=== PATIENT | male | born 1995 | race Two or more races ===

== ENCOUNTER 2020-07-24 19:59 | Emergency (ER) | payer OTHER ==
[~2020-07-24] VITALS: Ht 190.5 cm; Wt 118.2 kg
[2020-07-24 20:02] VITALS: BP 130/79
== END 2020-07-25 00:14 | disposition home or self-care (01) ==
LOC: EMS 20:03
DX: S61.412A Laceration without foreign body of left hand, initial encounter (principal); Z88.0 Allergy status to penicillin; W25.XXXA Contact with sharp glass, initial encounter; Y93.89 Activity, other specified; Y92.89 Other specified places as the place of occurrence of the external cause; Y99.8 Other external cause status
CPT/HCPCS: 12001; 99282; Z7502